=== PATIENT | female | born 1975 | race African-American/Black ===

== ENCOUNTER 2018-11-05 04:35 | Observation (INO) | payer SELFPAY ==
[2018-11-05] MEDS ORDERED: MORPHINE SULFATE 10 MG/ML INJ IV ONE (04:49)
[2018-11-05] MEDS ORDERED: NORMAL SALINE 1000 ML 1,000 ML IV ONE (04:49)
[2018-11-05] MEDS ORDERED: ONDANSETRON HCL INJ/PF 4 MG/2 ML SDV IV ONE (04:49)
--- NOTE | 2018-11-05 04:52 | ER Document Report ---
ED Medical Screen (RME) - General Stated Complaint: ABDOMINAL PAIN Time Seen by Provider: 11/05/18 04:43 Notes: 43-year-old female, chief complaint of abdominal pain for the past 2 days, she states the pain is not intermittently very severe and she states it is worse a fter eating, she has vomited multiple times. She has had a few loose stools. Pain is in the upper abdomen only. Denies flank pain, fever. She has had ectopic and removal of this but she denies any medical history otherwise. Physical Exam - General General appearance: Anxious In distress: Mild - Patient appears to be in pain - Abdominal Tenderness: Tender - Tender in the epigastric area only, remaining abdomen is unremarkable
[2018-11-05 05:35] LABS: ABSOLUTE EOSINOPHILS # (AUTO) 0.8 10^3/uL (0.0-0.6); ABSOLUTE MONOCYTES (AUTO) 0.8 10^3/uL (0.1-1.4); ABSOLUTE NEUT (AUTO) 6.4 10^3/uL (1.7-8.2); BASOPHILS % (AUTO) 0.3 % (0-2); EOSINOPHILS % (AUTO) 6.9 % (0-6); HEMOGLOBIN 12.2 g/dL (12.0-15.5); LYMPHOCYTES % (AUTO) 27.2 % (13-45); MEAN CORPUSCULAR HEMOGLOBIN 27.5 pg (27.0-33.4); MEAN CORPUSCULAR VOLUME 83 fl (80-97); MONOCYTES % (AUTO) 7.1 % (3-13); PLATELET COUNT 318 10^3/uL (150-450); RED BLOOD COUNT 4.45 10^6/uL (3.72-5.28); SEGMENTED NEUTROPHILS % (AUTO) 58.5 % (42-78); TOTAL CELLS COUNTED % (AUTO) 100 %
[2018-11-05 05:47] LABS: ALANINE AMINOTRANSFERASE 30 U/L (9-52); ALBUMIN 4.1 g/dL (3.5-5.0); ALKALINE PHOSPHATASE 80 U/L (38-126); ANION GAP 8 (5-19); ASPARTATE AMINO TRANSFERASE 33 U/L (14-36); BILIRUBIN,DIRECT 0.3 mg/dL (0.0-0.4); BILIRUBIN,TOTAL 0.3 mg/dL (0.2-1.3); BLOOD UREA NITROGEN 13 mg/dL (7-20); CALCIUM 9.3 mg/dL (8.4-10.2); CARBON DIOXIDE 26 mmol/L (22-30); CHLORIDE 109 mmol/L (98-107); GLUCOSE 117 mg/dL (75-110); LIPASE 102.6 U/L (23-300); POTASSIUM 4.4 mmol/L (3.6-5.0); SODIUM 142.8 mmol/L (137-145); TOTAL PROTEIN 7.1 g/dL (6.3-8.2)
[2018-11-05 05:48] LABS: APPEARANCE,URINE SLIGHTLY-CLOUDY; BILIRUBIN,URINE NEGATIVE (NEGATIVE); COLOR,URINE YELLOW; GLUCOSE, URINE NEGATIVE (NEGATIVE); KETONES,URINE NEGATIVE (NEGATIVE); LEUKOCYTE ESTERASE,URINE NEGATIVE (NEGATIVE); NITRITE,URINE NEGATIVE (NEGATIVE); PROTEIN,URINE NEGATIVE (NEGATIVE); URINE SPECIFIC GRAVITY 1.018
--- NOTE | 2018-11-05 06:15 | RADIOLOGY REPORT (SQ) ---
CLINICAL HISTORY: sharp epigastric pain, vomiting COMPARISON: None. 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 The aorta is not aneurysmal. Liver is normal in position. There is patent. Gallbladder contains stones and sludge without wall thickening or pericholecystic fluid. Common bile duct measures 2 mm. Right kidney measures 11.8 cm without hydronephrosis. IMPRESSION: Cholelithiasis without cholecystitis.
[2018-11-05] MEDS ORDERED: FENTANYL CITRATE INJ/PF 100 MCG/2 ML AMPUL IV ONE (06:22)
--- NOTE | 2018-11-05 06:24 | ER Document Report ---
ED General - General Chief Complaint: Upper Abdominal Pain Stated Complaint: ABDOMINAL PAIN Time Seen by Provider: 11/05/18 04:43 Notes: 43-year-old female with history of gallstones presents with abdominal pain epigastric and right upper quadrant, severe and constant since 2 in the morning for 4 hours now. He has had intermittent right upper quadrant pain with eating for last 2 days but was woken up from sleep with his constant pain. Positive nausea no vomiting positive anorexia no fever. - Related Data Allergies/Adverse Reactions: prochlorperazine [From Compazine] Allergy (Verified 11/05/18 07:43) Past Medical History - Social History Smoking Status: Current Some Day Smoker Chew tobacco use (# tins/day): No Frequency of alcohol use: Social Drug Abuse: None Family History: None Patient has suicidal ideation: No Patient has homicidal ideation: No Renal/ Medical History: Denies: Hx Peritoneal Dialysis Past Surgical History: Reports: Hx Gynecologic Surgery - r tubal removal - ectopic Review of Systems - Review of Systems Notes: REVIEW OF SYSTEMS GEN: Denies fever, chills, weight loss ENT: Denies sore throat, nasal discharge, ear pain EYES: Denies blurry vision, eye pain, discharge CV: Denies chest pain, palpitations, edema RESP: Denies cough, shortness of breath, wheezing GI: Abdominal pain MSK: Denies joint pain/swelling, edema, SKIN: Denies rash, skin lesions LYMPH: Denies swollen glands/lymph nodes NEURO: Denies headache, focal weakness or numbness, dizziness PSYCH: Denies depression, suicidal or homicidal ideation PHYSICAL EXAMINATION General: No acute distress, well-nourished Head: Atraumatic, normocephalic ENT: Mouth normal, oropharynx moist, no exudates or tonsillar enlargement Eyes: Conjunctiva normal, pupils equal, lids normal Neck: No JVD, supple, no guarding CVS: Normal rate, regular rhythm, no murmurs Resp: No resp distress, equal and normal breath sounds bilaterally GI: Nondistended, soft, positive right upper quadrant tenderness positive Dumont sign Ext: No deformities, no edema, normal range of motion in upper and lower ext Back: No CVA or midline TTP Skin: No rash, warm Lymphatic: No lymphadeopathy noted Neuro: Awake, alert. Face symmetric. GCS 15. Physical Exam - Vital signs Vitals: Temp Pulse BP Pulse Ox 98.2 F 91 127/81 H 98 11/05/18 04:39 11/05/18 04:39 11/05/18 04:39 11/05/18 04:39 Course - Re-evaluation Re-evalutation: 11/05/18 06:24 43-year-old female with known gallstones presents with constant pain for 4 hours positive Dumont's and positive right upper quadrant tenderness. Rapid medical evaluation provider ordered labs and ultrasound. Ultrasound shows gallstones without cholecystitis, white count is mildly elevated. Patient reassessed by me at 6:24 AM still having severe pain. Ordered second dose of meds, consulted marco marin. 11/05/18 07:56 Mild leukocytosis. Discussed with Sarah. - Vital Signs Vital signs: Temp Pulse Resp BP Pulse Ox 98.2 F 91 127/81 H 98 11/05/18 04:39 11/05/18 04:39 11/05/18 04:39 11/05/18 04:39 - Laboratory Result Diagrams: 11/05/18 05:20 11/05/18 05:20 Laboratory results interpreted by me: 11/05/18 11/05/18 11/05/18 05:20 05:20 05:25 WBC 11.0 H Eosinophils % 6.9 H Absolute Eosinophils 0.8 H Chloride 109 H Creatinine 0.45 L Glucose 117 H Urine Urobilinogen 2.0 H - Diagnostic Test Radiology reviewed: Image reviewed, Reports reviewed Discharge - Discharge Clinical Impression: Symptomatic cholelithiasis Condition: Fair Disposition: ADMITTED INPATIENT Admitting Provider: Surgicalist Unit Admitted: Surgical Floor
[2018-11-05] MEDS ORDERED: RINGERS SOLUTION,LACTATED 1,000 ML IV PRN (06:56)
--- NOTE | 2018-11-05 07:22 | PDOC H&P ---
History of Present Illness Patient complains of: Abdominal pain History of Present Illness: MELISSA RAGLAND is a 43 year old female Patient brought to the emergency department via ground rescue complaining of acute onset earlier this morning of abdominal pain nausea vomiting. Has had several bowel movements loose. Pain is similar to several episodes she has had in the past several years. She has been worked up in the past including 15 years ago when she was seen in the emergency department and had gallbladder ultrasonography showing gallstones. She was seen back in the emergency department with gallbladder ultrasonographic findings showing cholelithiasis. She is received pain medication with some relief. Surgery was consulted and she is advised admission definitive management. Past Medical History Past Medical History: Symptomatic cholelithiasis Medical History: None Past Surgical History Past Surgical History: Right salpingectomy. Social History Information Source: Patient Smoking Status: Current Some Day Smoker Frequency of Alcohol Use: None Hx Recreational Drug Use: No Family History Family History: None Parental Family History Reviewed: Yes Children Family History Reviewed: Yes Sibling(s) Family History Reviewed.: Yes Review of Systems Constitutional: PRESENT: as per HPI Eyes: ABSENT: visual disturbances Ears: ABSENT: hearing changes Cardiovascular: ABSENT: chest pain, dyspnea on exertion, edema, orthropnea, palpitations Respiratory: ABSENT: cough, hemoptysis Genitourinary: ABSENT: dysuria, hematuria Musculoskeletal: ABSENT: joint swelling Integumentary: ABSENT: rash, wounds Physical Exam Vital Signs: Intake & Output 11/03/18 11/04/18 11/05/18 06:59 06:59 06:59 Weight 66 kg General appearance: PRESENT: mild distress Head exam: PRESENT: normocephalic Eye exam: PRESENT: EOMI Mouth exam: PRESENT: dry mucosa Neck exam: PRESENT: full ROM Respiratory exam: PRESENT: clear to auscultation jennifer Cardiovascular exam: PRESENT: RRR Pulses: PRESENT: normal carotid pulses, normal radial pulses, normal femoral pulses GI/Abdominal exam: PRESENT: other - Tender epigastric and right upper quadrant with minimal guarding; patient did receive pain medication prior to exam. Abdominal distention; bowel sounds hypoactive Rectal exam: PRESENT: deferred Neurological exam: PRESENT: alert, awake, oriented to person, oriented to place, oriented to time, oriented to situation Skin exam: PRESENT: dry Results Laboratory Results: 11/05/18 05:20 11/05/18 05:20 11/05/18 11/05/18 11/05/18 05:20 05:20 05:20 WBC 11.0 H RBC 4.45 Hgb 12.2 Hct 37.0 MCV 83 MCH 27.5 MCHC 33.0 RDW 14.0 Plt Count 318 Seg Neutrophils % 58.5 Lymphocytes % 27.2 Monocytes % 7.1 Eosinophils % 6.9 H Basophils % 0.3 Absolute Neutrophils 6.4 Absolute Lymphocytes 3.0 Absolute Monocytes 0.8 Absolute Eosinophils 0.8 H Absolute Basophils 0.0 Sodium 142.8 Potassium 4.4 Chloride 109 H Carbon Dioxide 26 Anion Gap 8 BUN 13 Creatinine 0.45 L Est GFR ( Amer) > 60 Est GFR (Non-Af Amer) > 60 Glucose 117 H Calcium 9.3 Total Bilirubin 0.3 AST 33 ALT 30 Alkaline Phosphatase 80 Total Protein 7.1 Albumin 4.1 Lipase 102.6 Serum HCG, Qual NEGATIVE Urine Color Urine Appearance Urine pH Ur Specific [place] Urine Protein Urine Glucose (UA) Urine Ketones Urine Blood Urine Nitrite Ur Leukocyte Esterase Urine WBC (Auto) Urine RBC (Auto) 11/05/18 05:25 WBC RBC Hgb Hct MCV MCH MCHC RDW Plt Count Seg Neutrophils % Lymphocytes % Monocytes % Eosinophils % Basophils % Absolute Neutrophils Absolute Lymphocytes Absolute Monocytes Absolute Eosinophils Absolute Basophils Sodium Potassium Chloride Carbon Dioxide Anion Gap BUN Creatinine Est GFR ( Amer) Est GFR (Non-Af Amer) Glucose Calcium Total Bilirubin AST ALT Alkaline Phosphatase Total Protein Albumin Lipase Serum HCG, Qual Urine Color YELLOW Urine Appearance SLIGHTLY-CLOUDY Urine pH 6.0 Ur Specific [place] 1.018 Urine Protein NEGATIVE Urine Glucose (UA) NEGATIVE Urine Ketones NEGATIVE Urine Blood NEGATIVE Urine Nitrite NEGATIVE Ur Leukocyte Esterase NEGATIVE Urine WBC (Auto) 3 Urine RBC (Auto) 3 Impressions: Abdomen Ultrasound 11/05/18 04:48 IMPRESSION: Cholelithiasis without cholecystitis. Assessment & Plan - Diagnosis (1) Symptomatic cholelithiasis Is this a current diagnosis for this admission?: Yes Plan: Impression: Acute superimposed on chronic cholecystitis cholelithiasis in otherwise healthy -[place] female Recommendations: 1. Keep n.p.o., IV fluids, set patient up for interval laparoscopic, possible open cholecystectomy this will be performed by Dr. Garcia, surgicalist of the day - Time Time Spent: 30 to 50 Minutes Critical Time spent with patient: Less than 15 minutes Medications reviewed and adjusted accordingly: Yes Anticipated discharge: Home - Inpatient Certification Based on my medical assessment, after consideration of the patient's comorbidities, presenting symptoms, or acuity I expect that the services needed warrant INPATIENT care.: Yes I certify that my determination is in accordance with my understanding of Medicare's requirements for reasonable and necessary INPATIENT services [42 CFR 412.3e].: Yes Medical Necessity: Need For IV Fluids, Need for Pain Control, Need for IV Antibiotics, Need for Surgery
[2018-11-05] MEDS ORDERED: BUPIVACAINE HCL 0.25 % INJ/PF (2.5 MG/1 ML) 30 ML VIAL ONE (08:06)
[2018-11-05] MEDS ORDERED: HYDROMORPHONE HCL INJ/PF 2 MG/ML AMPULE ONE (09:04)
[2018-11-05] MEDS ORDERED: FENTANYL CITRATE INJ/PF 100 MCG/2 ML AMPUL ONE (09:04)
[2018-11-05] MEDS ORDERED: MIDAZOLAM 2 MG/2 ML INJ ONE (09:05)
[2018-11-05] MEDS ORDERED: PROPOFOL INJ 200 MG/20 ML VIAL IV ONE (09:05)
[2018-11-05] MEDS ORDERED: ACETAMINOPHEN 1,000 MG/100 ML RTUPB IV ONE (09:05)
[2018-11-05] MEDS ORDERED: CEFAZOLIN INJ 1 GM VIAL ONE (09:29)
[2018-11-05] MEDS ORDERED: FENTANYL CITRATE INJ/PF 100 MCG/2 ML AMPUL IV PRN ×3 (11:07)
[2018-11-05] MEDS ORDERED: MEPERIDINE HCL/PF INJ 25 MG/1 ML DISP.SYRIN IV PRN (11:07)
[2018-11-05] MEDS ORDERED: DIPHENHYDRAMINE HCL 50 MG/ML VIAL IV PRN (11:07)
[2018-11-05] MEDS ORDERED: MORPHINE SULFATE 10 MG/ML INJ IV PRN (11:07)
[2018-11-05] MEDS ORDERED: METOCLOPRAMIDE HCL INJ/PF 10 MG/2 ML SDV ONE (11:20)
[2018-11-05] MEDS ORDERED: PROMETHAZINE HCL INJ 25 MG/1 ML VIAL ONE (11:20)
[2018-11-05] MEDS ORDERED: SCOPOLAMINE HYDROBROMIDE 1.5 MG PATCH.TD72 ONE (12:09)
[2018-11-05] MEDS ORDERED: ONDANSETRON HCL INJ/PF 4 MG/2 ML SDV ONE (12:28)
[2018-11-05] MEDS ORDERED: LIDOCAINE 2% INJ-PF (20 MG/ML) 2 ML AMPUL ONE (12:28)
[2018-11-05] MEDS ORDERED: SUCCINYLCHOLINE CHLORIDE INJ 200 MG/10 ML VIAL ONE (12:28)
[2018-11-05] MEDS ORDERED: DEXAMETHASONE SOD PHOSPHATE INJ 4 MG/1 ML VIAL ONE (12:28)
[2018-11-05] MEDS ORDERED: GLYCOPYRROLATE 1 MG/5 ML SYRINGE ONE (12:28)
[2018-11-05] MEDS ORDERED: ROCURONIUM BROMIDE INJ 50 MG/5 ML VIAL IV ONE (12:28)
[2018-11-05] MEDS ORDERED: NEOSTIGMINE METHYLSULFATE 10 MG/10 ML VIAL ONE (12:28)
[2018-11-05] MEDS: FAMOTIDINE 20 MG TABLET PO SCH ×2 (14:59→22:23)
[2018-11-05] MEDS: ONDANSETRON HCL INJ/PF 4 MG/2 ML SDV IV PRN ×2 (16:36→20:18)
[2018-11-05] MEDS: HYDROCODONE/ACETAMINOPHEN 10-325 MG TABLET PO PRN ×2 (16:36→20:24)
--- NOTE | 2018-11-05 23:39 | Operative Report ---
Nonrecallable Operative Report DATE OF SURGERY: 11/05/18 PREOPERATIVE DIAGNOSIS: symptomatic cholelithiasis POSTOPERATIVE DIAGNOSIS: same OPERATION: 1. laparoscopic cholecystectomy. 2. Primary umbilical hernia repair SURGEON: DOMI EARL ANESTHESIA: GA TISSUE REMOVED OR ALTERED: gallbladder COMPLICATIONS: none apparent ESTIMATED BLOOD LOSS: minimal PROCEDURE: Drains/implants: None. Procedure in detail: After informed consent was obtained, the patient was brought to the operating room and laid in the supine position. The area of the abdomen was prepped and draped in a normal sterile fashion. The patient was found to have an umbilical hernia present. This umbilical hernia would be used to access the abdominal cavity. A curvilinear infraumbilical incision was created with a 15 blade scalpel. Dissection was carried through the subcutaneous tissue using sharp and blunt dissection. The cicatrix was encircled, elevated with a Rosie clamp, and divided sharply. This exposed the hernia defect. The hernia defect was then used to introduce the balloon trocar into the abdomen. Pneumoperitoneum was then achieved. A subxiphoid 5 mm port was placed under direct laparoscopic visualization. 2 more 5 mm ports were placed in the right upper quadrant in similar fashion. Atraumatic graspers were placed through the 5 mm ports. The gallbladder was retracted cephalad and laterally. Dissection was begun in the triangle of Calot. The cystic duct and cystic artery were fully visualized and skeletoniz ed, seeing the liver through the triangle. Once the critical view of safety was obtained the cystic duct and cystic artery were clipped and cut with laparoscopic instruments. The gallbladder was then removed from the liver using Bovie electrocautery. The gallbladder was then grasped with a large clamp and pulled out through the umbilicus. The camera was reinserted. The hilum was inspected, and found to be free of any leakage of blood or bile. Once this was confirmed the 5 mm trochars were removed under direct laparoscopic visualization. The umbilical trocar was removed, and pneumoperitoneum was relieved. The umbilical hernia defect was then closed using #1 Ethibond suture in [id number] fashion. The cicatrix was then tacked back to the fascia using 0 Vicryl suture in simple interrupted fashion. The overlying skin was closed using 4-0 Vicryl Rapide suture in subcuticular fashion. Dressings were placed, and the procedure was concluded. All sponge, instrument, and needle counts were correct x2. Condition: Stable.
[2018-11-06] MEDS: HYDROCODONE/ACETAMINOPHEN 10-325 MG TABLET PO PRN ×5 (01:01→21:19)
[2018-11-06] MEDS: ONDANSETRON HCL INJ/PF 4 MG/2 ML SDV IV PRN ×4 (05:54→21:19)
[2018-11-06] MEDS: FAMOTIDINE 20 MG TABLET PO SCH ×2 (10:30→21:19)
--- NOTE | 2018-11-06 11:53 | PDOC PROGRESS REPORT ---
Subjective Progress Note for:: 11/06/18 Reason For Visit: SYMPTOMATIC CHOLELITHIASIS WITH CHOLECYSTITIS Physical Exam Vital Signs: Temp Pulse Resp BP Pulse Ox 97.9 F 79 16 136/86 H 100 11/06/18 07:46 11/06/18 07:46 11/06/18 07:46 11/06/18 07:46 11/06/18 07:46 Intake & Output 11/05/18 11/06/18 11/07/18 06:59 06:59 06:59 Intake Total 2850 Output Total 10 Balance 2840 Weight 66 kg 66 kg General appearance: PRESENT: no acute distress, mild distress Respiratory exam: PRESENT: clear to auscultation jennifer Cardiovascular exam: PRESENT: RRR Pulses: PRESENT: normal radial pulses, normal femoral pulses GI/Abdominal exam: PRESENT: soft Extremities exam: PRESENT: full ROM Musculoskeletal exam: PRESENT: full ROM Skin exam: PRESENT: dry Results Laboratory Results: 11/05/18 05:20 11/05/18 05:20 Impressions: Abdomen Ultrasound 11/05/18 04:48 IMPRESSION: Cholelithiasis without cholecystitis. Assessment & Plan - Plan Summary Plan Summary: pt is pod 1 from [facility] for symptomatic cholelilthiasis age large breafast this am, now with epigastric distress denies bm for last 2-3 days does not want to go home today will try dulcolax suppository today poss home in am
[2018-11-06] MEDS ORDERED: BISACODYL 10 MG SUPP.RECT PR ONE (14:00)
[2018-11-07] MEDS: ONDANSETRON HCL INJ/PF 4 MG/2 ML SDV IV PRN ×2 (06:03→10:15)
[2018-11-07] MEDS: HYDROCODONE/ACETAMINOPHEN 10-325 MG TABLET PO PRN ×2 (06:03→10:14)
[2018-11-07] MEDS: FAMOTIDINE 20 MG TABLET PO SCH (10:16)
--- NOTE | 2018-11-07 12:37 | PDOC PROGRESS REPORT ---
Subjective Progress Note for:: 11/07/18 Subjective:: feels well today diet tolerated., flatus present Reason For Visit: SYMPTOMATIC CHOLELITHIASIS WITH CHOLECYSTITIS Physical Exam Vital Signs: Temp Pulse Resp BP Pulse Ox 97.4 F 72 16 136/87 H 99 11/07/18 08:11 11/07/18 08:11 11/07/18 08:11 11/07/18 08:11 11/07/18 08:11 Intake & Output 11/06/18 11/07/18 11/08/18 06:59 06:59 06:59 Intake Total 2850 1400 Output Total 10 Balance 2840 1400 Weight 66 kg 70 kg General appearance: PRESENT: no acute distress Respiratory exam: PRESENT: clear to auscultation jennifer Cardiovascular exam: PRESENT: RRR GI/Abdominal exam: PRESENT: distended - slightly,, normal bowel sounds, soft - no peritonitis, other - all incisions are clear, dry, and intact Results Laboratory Results: 11/05/18 05:20 11/05/18 05:20 Impressions: Abdomen Ultrasound 11/05/18 04:48 IMPRESSION: Cholelithiasis without cholecystitis. Assessment & Plan - Diagnosis (1) Symptomatic cholelithiasis Is this a current diagnosis for this admission?: Yes - Plan Summary Plan Summary: A/ POD#2 after lap david for symptomatic cholelithiasis VSS, AF Diet tolerated Flatus present patient denies abdominal pain PE unremarkable except for slight distention P/ Home today Regular diet Activities as tolerated, no limitations No wound care needed Shower only x 2 weeks after surgery, then can bathe Follow up with General Surgery office PA (Jody Birch) in 2 weeks Tylenol 325 mg po every 6 hours as needed for pain as needed Aleve 1 tablet by mouth twice a day with for pain as needed Miralax over the counter 1 cup by mouth twice a day as needed for pain
--- NOTE | 2018-11-07 13:22 | DISCHARGE SUMMARY E ---
Discharge Summary NAME: MELISSA RAGLAND : 1975 AGE: 43Y ADMITTED: 11/05/2018 DISCHARGED: 11/07/2018 FINAL DIAGNOSIS: Symptomatic cholelithiasis. PROCEDURE: On 11/05, the patient underwent laparoscopic cholecystectomy by Dr. Garcia. COMPLICATIONS: None. HOSPITAL COURSE: This is a healthy 43-year-old female who presented to the emergency room early in the morning on 11/05 complaining of epigastric and right upper quadrant pain. Found to have symptomatic cholelithiasis. The patient underwent a laparoscopic cholecystectomy the same day. The procedure was uneventful. The patient was then admitted to the floor. Her postop course was characterized by unresolved abdominal pain and nausea following ingestion of food. She was kept in the hospital. On postop day number 1 on postop day number 2 the patient had no complaints. She was able to tolerate p.o. well. She presented with flatus. Vital signs were stable. She was afebrile. Physical exam demonstrated a slightly distended abdomen, soft, with no peritonitis. Positive bowel sounds. All incisions were clean, dry, and intact. The patient was then discharged to home on 11/07/2018. She was given a regular diet. Shower allowed, bath allowed 2 weeks after discharge. No wound care needed. She was given follow-up appointment with the PA of the clinic, Jody Birch, in 2 weeks. She was given Tylenol 325 mg by mouth every 6 hours as needed for pain, Aleve 1 tab with food by mouth twice a day as needed for pain, Miralax 1 to 2 caps with fluid twice a day as needed for constipation. She was recommended to resume her activities without limitation as tolerated. DICTATING PHYSICIAN: SHON ANN M.D. [id number] PHY#: [id number] ID: [id number] JOB#: [id number] ACCT: [id number] cc:Thaddeus BARRETT M.D. >
[2018-11-07 14:27] VITALS: BP 105/61
== END 2018-11-07 14:56 | disposition home or self-care (01) ==
LOC: ER 04:35 → EH 08:21 → INTOOBSV 08:21 → 4S 12:21
PROVIDERS: ADMIT Surgery; ATTEND Surgery
PROC: 0WQF0ZZ Repair Abdominal Wall, Open Approach (ICD-10-PCS; 2018-11-05)
PROC: 0FT44ZZ Resection of Gallbladder, Percutaneous Endoscopic Approach (ICD-10-PCS; principal; 2018-11-05 09:45)
DX: K81.1 Chronic cholecystitis (principal); K42.9 Umbilical hernia without obstruction or gangrene; G89.18 Other acute postprocedural pain; R10.9 Unspecified abdominal pain; K91.89 Other postprocedural complications and disorders of digestive system; R11.0 Nausea; Y83.6 Removal of other organ (partial) (total) as the cause of abnormal reaction of the patient, or of later complication, without mention of misadventure at the time of the procedure; R14.3 Flatulence; F17.200 Nicotine dependence, unspecified, uncomplicated; Z90.79 Acquired absence of other genital organ(s); Z87.59 Personal history of other complications of pregnancy, childbirth and the puerperium; Z98.890 Other specified postprocedural states
CPT/HCPCS: 47562; 49585; 99285; 96361; 96374; 96375; 36415; 83690; 84703; 85025; 80053; 81001; 88304 ×2; 76705; J2250; J0690; J3490 ×3; J1100; J3010; J2765; J2270; J1170; J0330; J2405 ×3; J7030; J2704; J0131; 790; J2550

== ENCOUNTER 2018-11-09 18:06 | Emergency (ER) | payer SELFPAY ==
[2018-11-09] MEDS ORDERED: NORMAL SALINE 1000 ML 1,000 ML IV ONE ×2 (18:37→20:21)
[2018-11-09] MEDS ORDERED: ONDANSETRON HCL INJ/PF 4 MG/2 ML SDV IV ONE ×2 (18:37→20:57)
[2018-11-09 18:46] LABS: ABSOLUTE LYMPHOCYTES (AUTO) 2.8 10^3/uL (0.5-4.7); ABSOLUTE MONOCYTES (AUTO) 0.7 10^3/uL (0.1-1.4); ABSOLUTE NEUT (AUTO) 6.4 10^3/uL (1.7-8.2); BASOPHILS % (AUTO) 0.5 % (0-2); EOSINOPHILS % (AUTO) 9.1 % (0-6); HEMOGLOBIN 14.1 g/dL (12.0-15.5); LYMPHOCYTES % (AUTO) 25.9 % (13-45); MEAN CORPUSCULAR HEMOGLOBIN 27.2 pg (27.0-33.4); MEAN CORPUSCULAR HGB CONC 32.8 g/dL (32.0-36.0); MEAN CORPUSCULAR VOLUME 83 fl (80-97); MONOCYTES % (AUTO) 6.4 % (3-13); PLATELET COUNT 371 10^3/uL (150-450); RED BLOOD COUNT 5.19 10^6/uL (3.72-5.28); SEGMENTED NEUTROPHILS % (AUTO) 58.1 % (42-78); TOTAL CELLS COUNTED % (AUTO) 100 %; WHITE BLOOD COUNT 10.9 10^3/uL (4.0-10.5)
[2018-11-09] MEDS: MORPHINE SULFATE 10 MG/ML INJ IV PRN ×3 (18:47→20:44)
[2018-11-09 18:52] LABS: ALANINE AMINOTRANSFERASE 176 U/L (9-52); ALBUMIN 4.6 g/dL (3.5-5.0); ALKALINE PHOSPHATASE 166 U/L (38-126); ANION GAP 12 (5-19); ASPARTATE AMINO TRANSFERASE 81 U/L (14-36); BILIRUBIN,DIRECT 0.4 mg/dL (0.0-0.4); BILIRUBIN,TOTAL 0.5 mg/dL (0.2-1.3); BLOOD UREA NITROGEN 14 mg/dL (7-20); CALCIUM 10.2 mg/dL (8.4-10.2); CARBON DIOXIDE 28 mmol/L (22-30); CHLORIDE 100 mmol/L (98-107); GLUCOSE 107 mg/dL (75-110); LIPASE 227.4 U/L (23-300); POTASSIUM 4.5 mmol/L (3.6-5.0); SODIUM 140.2 mmol/L (137-145); TOTAL PROTEIN 7.9 g/dL (6.3-8.2)
--- NOTE | 2018-11-09 19:43 | RADIOLOGY REPORT (SQ) ---
EXAM DESCRIPTION: CT ABD/PELVIS WITH IV ONLY COMPLETED DATE/TIME: 11/09/2018 7:16 pm REASON FOR STUDY: post-op abdominal pain , right upper quadrant pain status post cholecystectomy. COMPARISON: Right upper quadrant ultrasound 11/05/2018. TECHNIQUE: CT scan of the abdomen and pelvis performed using helical scanning technique with dynamic intravenous contrast injection. No oral contrast. Images reviewed with lung, soft tissue, and bone windows. Reconstructed coronal and sagittal MPR images reviewed. Delayed images for evaluation of the urinary system also acquired. All images stored on PACS. All CT scanners at this facility use dose modulation, iterative reconstruction, and/or weight based d osing when appropriate to reduce radiation dose to as low as reasonably achievable (ALARA). [facility]: Dose Right [facility]: CareDose [facility]: Dose Right [facility]: Teradose 4D [facility]: [employer] CONTRAST TYPE AND DOSE: contrast/concentration: Isovue 350.00 mg/ml; Total Contrast Delivered: 78.0 ml; Total Saline Delivered: 67.0 ml RENAL FUNCTION: Creatinine 0.59 RADIATION DOSE: CT Rad equipment meets quality standard of care and radiation dose reduction techniq ues were employed. CTDIvol: 6.7 - 8.9 mGy. DLP: 820 mGy-cm.. LIMITATIONS: None. FINDINGS: LOWER CHEST: No consolidation or pleural effusion. LIVER: Normal size. No masses. There is intra and extrahepatic biliary ductal dilation. The common bile duct measures 8 mm. SPLEEN: Normal size. No focal lesions. PANCREAS: No significant calcifications. No adjacent inflammation or peripancreatic fluid collections . Pancreatic duct not dilated. GALLBLADDER: Surgically absent. ADRENAL GLANDS: No significant masses or asymmetry. RIGHT KIDNEY AND URETER: No significant calcifications. No hydronephrosis or hydroureter. LEFT KIDNEY AND URETER: Nonobstructing 5 mm (861 Hounsfield units) calculus at the inferior pole of the left kidney. No hydronephrosis or hydroureter. AORTA AND VESSELS: No abdominal aortic aneurysm. RETROPERITONEUM: No retroperitoneal adenopathy, hemorrhage or masses. BOWEL AND PERITONEAL CAVITY: No dilated bowel loops or inflammatory changes. No free fluid or free ai r. There is a moderate amount of stool at the colon. APPENDIX: Normal. PELVIS: The urinary bladder is partially decompressed. The uterus is present. There is a 1.9 cm cor pus luteum cyst at the right ovary. There is a trace amount of free pelvic fluid. ABDOMINAL WALL: There is a small fat containing periumbilical hernia. There is soft tissue stranding with trace subcutaneous emphysema at the periumbilical region, may be secondary to recent surgery. Mild soft tissue edema along the right anterior abdominal wall, may also be related to recent surgery . BONES: No significant or acute findings. IMPRESSION: 1. Mild dilation of the biliary tree status post cholecystectomy. Please correlate wit h laboratory values. 2. Nonobstructing left nephrolithiasis. 3. Moderate amount of stool at the colon. 4. 1.9 cm corpus luteum cyst at the right ovary. Trace amount of free pelvic fluid. 5. Postsurgical changes at the anterior abdominal wall. TECHNICAL DOCUMENTATION: JOB ID: [id number] Quality ID # [id number]: Final reports with documentation of one or more dose reduction techniques (e.g., Au tomated exposure control, adjustment of the mA and/or kV according to patient size, use of iterative reconstruction technique) 2010 [employer]- All Rights Reserved Reading location - IP/workstation name: [email or web address]
--- NOTE | 2018-11-09 20:21 | ER Document Report ---
ED General - General Chief Complaint: Post Surgical Pain Stated Complaint: ABDOMINAL PAIN Time Seen by Provider: 11/09/18 18:36 Notes: Patient is a 43-year-old female without chronic medical problems, 3 days post cholecystectomy who presents with acute onset of right upper quadrant epigastric abdominal pain with associated nausea and vomiting. Patient states that her pain and nausea have been under control until the last 12 hours. Describes pain in the upper abdomen as being a throbbing, aching, constant pain. Worsened by any attempt at consuming food. Nothing improves the pain. States that she had not had these symptoms since the surgery. Has not had fever or constitutional symptoms. Has not contacted her surgeon regarding today's concerns. TRAVEL OUTSIDE OF THE [place] IN LAST 30 DAYS: No - Related Data Allergies/Adverse Reactions: prochlorperazine [From Compazine] Allergy (Verified 11/05/18 07:43) Past Medical History - General Information source: Patient - Social History Smoking Status: Current Some Day Smoker Frequency of alcohol use: Rare Drug Abuse: None Lives with: Spouse/Significant other Family History: Reviewed & Not Pertinent Patient has suicidal ideation: No Patient has homicidal ideation: No Renal/ Medical History: Denies: Hx Peritoneal Dialysis Past Surgical History: Reports: Hx Cholecystectomy, Hx Gynecologic Surgery - r tubal removal -ectopic Review of Systems - Review of Systems Notes: Constitutional: Negative for fever. HENT: Negative for sore throat. Eyes: Negative for visual changes. Cardiovascular: Negative for chest pain. Respiratory: Negative for shortness of breath. Gastrointestinal: Positive for abdominal pain and vomiting Genitourinary: Negative for dysuria. Musculoskeletal: Negative for back pain. Skin: Negative for rash. Neurological: Negative for headaches, weakness or numbness. 10 point ROS negative except as marked above and in HPI. Physical Exam - Vital signs Vitals: Temp Pulse Resp BP Pulse Ox 97.7 F 120 H 22 H 146/105 H 98 11/09/18 18:11 11/09/18 18:11 11/09/18 18:11 11/09/18 18:11 11/09/18 18:11 Interpretation: Hypertensive, Tachycardic Notes: PHYSICAL EXAMINATION: GENERAL: Appears uncomfortable but in no acute distress HEAD: Atraumatic, normocephalic. EYES: Pupils equal round and reactive to light, extraocular movements intact, sclera anicteric, conjunctiva are normal. ENT: nares patent, oropharynx clear without exudates. Moist mucous membranes. NECK: Normal range of motion, supple without lymphadenopathy LUNGS: Breath sounds clear to auscultation bilaterally and equal. No wheezes rales or rhonchi. HEART: Regular rate and rhythm without murmurs ABDOMEN: Soft, focal tenderness to the right upper quadrant and epigastrium no other localized areas of tenderness., normoactive bowel sounds. No guarding, no rebound. No masses appreciated. EXTREMITIES: Normal range of motion, no pitting or edema. No cyanosis. NEUROLOGICAL: No focal neurological deficits. Moves all extremities spontaneously and on command. PSYCH: Moderately anxious, intermittently tearful SKIN: Warm, Dry, normal turgor, no rashes or lesions noted. Course - Re-evaluation Re-evalutation: 11/09/18 20:20 Patient presents with right upper quadrant abdominal pain with associated nausea and vomiting that started within the last 12 hours. Had a cholecystectomy on the 13 of this month and was not having any pain until this morning. Arrives tachycardic but vitals otherwise within normal limits. CT scan of the abdomen pelvis IV contrast was obtained to evaluate for postoperative complications. No evidence of bleeding or abscess but does show dilated biliary tree. Patient's LFTs have also unfortunately elevated which was not the case when she had LFTs obtained on the . Certainly there is concern for retained common bile duct stone. I believe patient requires transfer for ERCP for definitive evaluation. Patient is requiring IV morphine for pain control. IV fluids ongoing. She is n.p.o. 11/09/18 20:57 I discussed this case with the hospitalist at [facility], Dr. Holt, he has accepted the patient for transfer. Patient continues to require IV analgesia as well as antiemetics. 11/10/18 02:28 Patient remained stable and appropriate for transport - Vital Signs Vital signs: Temp Pulse Resp BP Pulse Ox 98.6 F 120 H 18 116/82 99 11/10/18 02:22 11/09/18 18:11 11/10/18 02:20 11/10/18 02:20 11/10/18 02:20 - Laboratory Result Diagrams: 11/09/18 18:13 11/09/18 18:13 Laboratory results interpreted by me: 11/09/18 11/09/18 18:13 18:13 WBC 10.9 H Eosinophils % 9.1 H Absolute Eosinophils 1.0 H AST 81 H ALT 176 H Alkaline Phosphatase 166 H - Diagnostic Test Radiology reviewed: Reports reviewed Discharge - Discharge Clinical Impression: Common bile duct (CBD) obstruction, Upper abdominal pain Nausea and vomiting Qualifiers: Vomiting type: unspecified Vomiting Intractability: non-intractable Qualified Code(s): R11.2 - Nausea with vomiting, unspecified Condition: Fair Disposition: [facility]
[2018-11-10] MEDS: MORPHINE SULFATE 10 MG/ML INJ IV PRN (02:18)
[2018-11-10 02:23] VITALS: BP 116/82
[2018-11-10] MEDS ORDERED: ONDANSETRON HCL INJ/PF 4 MG/2 ML SDV IV ONE (02:28)
== END 2018-11-10 03:00 | disposition short-term general hospital (02) ==
LOC: ER 18:06
DX: K83.1 Obstruction of bile duct (principal); G89.18 Other acute postprocedural pain; R10.10 Upper abdominal pain, unspecified; R11.2 Nausea with vomiting, unspecified; R10.11 Right upper quadrant pain; F17.200 Nicotine dependence, unspecified, uncomplicated; Z90.49 Acquired absence of other specified parts of digestive tract
CPT/HCPCS: 96376; 99285; 96361; 96374; 96375; 36415; 83690; 85025; 80053; 74177; J2270 ×2; J2405 ×2; J7030